=== PATIENT | male | born 1945 | race Caucasian/White ===

== ENCOUNTER 2019-09-01 07:11 | Day surgery (SDC) | payer MEDICARE, SELFPAY ==
[2019-08-31 11:10] VITALS: BMI 23.8
[2019-09-01 07:50] VITALS: BP 164/76; PULSE 69; RESP 18; TEMP 36.6; O2SAT 98
--- NOTE | 2019-09-01 07:56 | ANES.PREANES ---
Pre-Anesthetic Assessment Pre-Anesthetic Assessment: Height/Weight: Height 1.68 m Weight 67.132 kg Temp Pulse Resp BP Pulse Ox 98 F 69 18 164/76 98 09/01/19 07:50 09/01/19 07:50 09/01/19 07:50 09/01/19 07:50 09/01/19 07:50 Proposed Procedure: Operation Date: 09/01/19 08:00 Proposed Procedures p Sigmoidoscopy(Not Applicable) - Jackson Summers MD Was Beta Bridger taken within 24 hours: N/A Last intake: Intake Last Liquid Date 08/31/19 Last Liquid Time 22:00 Last Solid Date 08/30/19 Last Solid Time 18:00 Social: Social History: No tobacco Exam: Pre-Anes Outpt Exam: alert, oriented x 3 and clear to auscultation bilaterally Airway: MP: 3 Additional comments: poor mouth opening Pulmonary: Pulmonary: None reported CV/HEM: CV/HEM: None reported : : None reported Hepatic: Hepatic: None reported GI: GI: GERD and Hiatus hernia Comments: controlled with meds Metabolic: Metabolic: None reported Musc/skel: Musc/skel: Lower Back Pain and OA/DJD Anesthetic Plan: ASA status: III Anesthesia: Anesthesia Evaluation and MAC Risk of > 500 ml blood loss (7ml/kg in children): No Data Anesthesia Cardiac Studies: No Data to Display
[2019-09-01] MEDS: sodium chloride 0.9% 1,000 ML 30 ML IV (07:58)
--- NOTE | 2019-09-01 08:00 | PM.HPUD ---
H&P update H&P Update: DATE OF SURGERY/PROCEDURE: 09/01/19 DATE H&P PERFORMED: 08/30/19 PLANNED PROCEDURE: Operation Date: 09/01/19 08:00 Proposed Procedures p Sigmoidoscopy(Not Applicable) - Jackson Summers MD Full H&P Medications/Allergies: Current Medications: Current Medications Generic Name Dose Route Start Last Admin Trade Name Freq PRN Reason Stop Dose Admin Sodium Chloride 1,000 mls @ 30 ml s/hr 09/01/19 07:30 09/01/19 07:58 Sodium Chloride 0.9% IV 09/02/19 07:29 30 mls/hr .Q24H TI Administration
[2019-09-01 08:24] VITALS: BP 113/69; PULSE 57; RESP 16; TEMP 36.5; O2SAT 95
--- NOTE | 2019-09-01 08:29 | ANE.PACU ---
 Inpatient post-anesthesia follow up: Airway intact: Yes Vital signs: Temperature 97.7 F Pulse Rate 57 Respiratory Rate 16 Blood Pressure 113/69 Pulse Oximetry 95 Oxygen Delivery Me thod Nasal Cannula Oxygen Flow Rate Fraction of Inspir ed Oxygen Hydration adequate: Yes Nausea and vomiting: No Pain level: Other Pain level: 0/10 Mental status: Baseline
[2019-09-01 08:31] VITALS: BP 115/87; PULSE 66; RESP 18; O2SAT 96
== END 2019-09-01 08:47 | disposition home or self-care (01) ==
PROVIDERS: Family Provider Nurse Practitioner Family; PCP Family Medicine; Visit Provider Surgery
PROC: 0DJD8ZZ Inspection of Lower Intestinal Tract, Via Natural or Artificial Opening Endoscopic (ICD-10-PCS; CPT 45330; principal; 2019-09-01 08:00)
DX: K57.30 Diverticulosis of large intestine without perforation or abscess without bleeding (principal); Z86.010 Personal history of colon polyps; M19.90 Unspecified osteoarthritis, unspecified site; F32.9 Major depressive disorder, single episode, unspecified; K21.9 Gastro-esophageal reflux disease without esophagitis; E78.5 Hyperlipidemia, unspecified; G89.29 Other chronic pain; M54.9 Dorsalgia, unspecified; Z79.891 Long term (current) use of opiate analgesic
CPT/HCPCS: 12345; 45330; J2704; J7030

== ENCOUNTER → 2020-03-21 15:47 | Outpatient (BNVA) | payer MEDICARE, SELFPAY | PROVIDERS: Family Provider Nurse Practitioner Family; PCP Family Medicine; Referring Provider Nurse Practitioner Family; Visit Provider Dermatology | DX: D48.9 Neoplasm of uncertain behavior, unspecified (principal); L73.9 Follicular disorder, unspecified; R20.2 Paresthesia of skin; L57.0 Actinic keratosis | CPT/HCPCS: 11102; 88304; 88305; 99203 ==

== ENCOUNTER → 2020-04-30 07:59 | Outpatient (BNVA) | payer MEDICARE, SELFPAY | PROVIDERS: Family Provider Nurse Practitioner Family; PCP Family Medicine; Visit Provider Dermatology | DX: C44.91 Basal cell carcinoma of skin, unspecified (principal); C44.212 Basal cell carcinoma of skin of right ear and external auricular canal; D48.9 Neoplasm of uncertain behavior, unspecified | CPT/HCPCS: 17311 ==

== ENCOUNTER 2020-10-04 13:29 | Outpatient (CLI) | payer MEDICARE, SELFPAY ==
--- NOTE | 2020-10-04 12:20 | CT_ITS ---
WS: [id number] CT ABDOMEN PELVIS TECHNIQUE: Contrast-enhanced CT of the abdomen and pelvis with coronal and sagittal reformatted image s. CLINICAL INFORMATION: ABDOMINAL PAIN, HISTORY OF COLON CANCER COMPARISON: CT 9 018 DLP: 1174.[address] scans at [facility] use at least one of these dose optimization techniques: automat ed exposure control; mA and/or kV adjustment per patient size (includes targeted exams where dose is matched to clinical indication); or iterative reconstruction. FINDINGS: Diffuse fatty infiltration liver. Normal gallbladder. Normal portal veins and splenic vein. A few tin y cysts in the dome the liver. Normal spleen. Normal GE junction. Lung bases are well aerated. Adrena l glands are normal. Large left renal cyst measuring 9.8 x 7.8 cm. Right renal cyst measuring 5.1 CCM . A few smaller bilateral peripelvic renal cysts. Inferior pole left renal cyst measuring 3.7 CCM. No hydronephrosis in either kidney. Bladder is contracted with mild diffuse wall thickening can be seen with chronic cystitis or bladder outlet obstruction. Conclusions enhancing nodular prostate measurin g 4.9 CCM. Recommend correlation PSA. Diffuse fatty atrophy of the pancreas. Normal caliber abdominal aorta. Aortic calcification. Sigmoid diverticulosis. No evidence of small large bowel obstruction. No evidence of acute diverticulitis. Circumferential wall thickening involving the distal rectum with additional right eccentric nodular t hickening at the level of the seminal vesicles. Findings are nonspecific but neoplasm should be exclu ded. This can be further evaluated with sigmoidoscopy. Small fat-containing right inguinal hernia. No left inguinal hernia. No abdominal or pelvic lymphadenopathy. No inguinal lymphadenopathy. Moderate to advanced lytic ramires es lumbar spine. Slight retrolisthesis L2 on L3 and L3 on L4. Moderate central canal stenosis. CT/CT abdomen pelvis w con* [id number] IMPRESSION: 1. Mild circumferential wall thickening involving the distal rectum with some right eccentric nodularity. Findings are nonspecific but neoplasm should be exc luded. Recommend further evaluation with sigmoidoscopy. 2. Sigmoid diverticulosis. No evidence of acute diverticulitis. 3. No evidence of small or large bowel obstruction. 4. Mild diffuse fatty infiltration liver. 5. Bilateral renal cysts the largest upper pole left kidney unchanged. 6. No hydronephrosis in either kidney. 7. No abdominal or pelvic lymphadenopathy. 8. Bladder is contracted with mild diffuse bladder wall thickening. This can b e seen with chronic cystitis or bladder outlet obstruction. 9. Heterogeneous enhancing nodular enlarged prostate measuring 4.9 CM. Recomme nd correlation PSA. 10. Very small fat-containing right inguinal hernia.
[2020-10-04] MEDS: iohexol 300 mg/mL 50 mL Btl PO (13:49)
[2020-10-04] MEDS: iodixanol 320 mg/mL 100mL Btl IV (14:03)
== END 2020-10-04 13:30 | disposition home or self-care (01) ==
LOC: RADWPI 13:37
PROVIDERS: PCP Family Medicine; Visit Provider Surgery
DX: R10.9 Unspecified abdominal pain (principal); Z85.038 Personal history of other malignant neoplasm of large intestine; K40.90 Unilateral inguinal hernia, without obstruction or gangrene, not specified as recurrent; N40.0 Benign prostatic hyperplasia without lower urinary tract symptoms; Q61.02 Congenital multiple renal cysts; K76.0 Fatty (change of) liver, not elsewhere classified; K57.30 Diverticulosis of large intestine without perforation or abscess without bleeding
CPT/HCPCS: 74177; Q9967

== ENCOUNTER 2023-02-13 13:44 | Outpatient (CLI) | payer MEDICARE, SELFPAY ==
--- NOTE | 2023-02-13 13:59 | USCV_ITS ---
Lucy Jennings Age: 77 Gender: M : 1945 Exam Date: 02/13/2023 14:15 Ordering Phys: Amna Klein SOLAR INSTALLER TECHNICIAN-BC XX Technologist: PRINCE Exam Location: [facility] – [place] Indication: Leg swelling/edema HISTORY: Lower extremity swelling. Lower extremity edema. PROCEDURES: Venous duplex imaging was performed in only the right lower extremity. The following venous structures were evaluated: common femoral vein, profunda vein, proximal portion of the greater saphenous vein, superficial femoral vein, and the popliteal vein. In addition, the posterior tibial and peroneal trunk were evaluated. Serial compression, augmentation maneuvers, and spectral Doppler flow evaluation were performed. FINDINGS: Pt has a acute appearing DVT in the popliteal veins going into the peroneals CONCLUSIONS Occlusive Acute DVT RIGHT popliteal vein extending into peroneal Remainder patent [place] notified provider at time of study Anil Proctor MD (Electronically Signed) Final Date: 13 February 2023 16:48 S
== END 2023-02-13 13:45 | disposition home or self-care (01) ==
PROVIDERS: PCP Nurse Practitioner Family; Visit Provider Nurse Practitioner Family
DX: R22.41 Localized swelling, mass and lump, right lower limb (principal); I82.431 Acute embolism and thrombosis of right popliteal vein
CPT/HCPCS: 93971

== ENCOUNTER 2023-07-21 09:38 | Outpatient (CLI) | payer MEDICARE, SELFPAY ==
--- NOTE | 2023-07-21 09:45 | USCV_ITS ---
Lucy Jennings Age: 78 Gender: M : 1945 Exam Date: 07/21/2023 10:05 Ordering Phys: Amna Klein SUPERVISOR TUNNEL HEADING-BC XX Technologist: CT Exam Location: [facility] [place] Indication: hx of dvt PROCEDURES: Venous duplex imaging was performed in bilateral lower extremities. Comparison:. 02/13/23 FINDINGS: Persistent DVT right popliteal and peroneal veins but improved slightly since the prior exam. Chronic appearing nonocclusive DVT left peroneal vein. Otherwise normal exam. CONCLUSIONS Persistent but slightly improved DVT right peroneal and popliteal veins. Chronic appearing DVT left peroneal vein. Dr. Shelly Ortega DO (Electronically Signed) Final Date: 21 July 2023 10:49 S
== END 2023-07-21 09:39 | disposition home or self-care (01) ==
LOC: RAD 09:39
PROVIDERS: PCP Nurse Practitioner Family; Visit Provider Nurse Practitioner Family
DX: I82.451 Acute embolism and thrombosis of right peroneal vein (principal); I82.431 Acute embolism and thrombosis of right popliteal vein; I82.552 Chronic embolism and thrombosis of left peroneal vein
CPT/HCPCS: 93970

== ENCOUNTER 2024-07-08 12:00 | Outpatient (CLI) | payer MEDICARE, SELFPAY ==
--- NOTE | 2024-07-08 12:06 | USCV_ITS ---
Lucy Jennings Age: 79 Gender: M : 1945 Exam Date: 07/08/2024 12:35 Ordering Phys: Amna Klein ALODIZE MACHINE OPERATOR-BC XX Technologist: PRINCE [place] [facility] [place]: Hx of DVT HISTORY: History of deep venous thrombosis. PROCEDURES: Venous duplex imaging was performed in bilateral lower extremities. The following venous structures were evaluated: common femoral vein, profunda vein, proximal portion of the greater saphenous vein, superficial femoral vein, and the popliteal vein. In addition, the posterior tibial and peroneal trunk were evaluated. Serial compression, augmentation maneuvers, and spectral Doppler flow evaluation were performed. FINDINGS: ?very small chronic DVT in lt pop All other appears wnl CONCLUSIONS Chronic appearing thin echogenic DVT left popliteal No evidence of right lower extremity DVT. Remainder patent Anil Proctor MD (Electronically Signed) Final Date: 08 July 2024 14:40 S
== END 2024-07-08 12:01 | disposition home or self-care (01) ==
LOC: RAD 12:01
PROVIDERS: PCP Nurse Practitioner Family; Visit Provider Nurse Practitioner Family
DX: I82.532 Chronic embolism and thrombosis of left popliteal vein (principal)
CPT/HCPCS: 93970

== ENCOUNTER → 2025-05-29 09:31 | Outpatient (BNVA) | payer MEDICARE, SELFPAY | PROVIDERS: PCP Nurse Practitioner Family; Visit Provider Nurse Practitioner | DX: M19.011 Primary osteoarthritis, right shoulder (principal); M19.012 Primary osteoarthritis, left shoulder; M67.912 Unspecified disorder of synovium and tendon, left shoulder | CPT/HCPCS: 20610; 73030; 99204; J1100; J2795; J3301; J9999 ==